=== PATIENT | male | born 1970 | race Caucasian/White ===

== ENCOUNTER 2020-02-12 04:36 | Observation (INO) ==
[2020-02-12 05:20] LABS: Basophils % 0.4 %; Eosinophils % 0.3 %; Hematocrit 43.6 % (37.5-50.1); Hemoglobin 13.6 g/dL (12.9-16.9); Immature Granulocytes % 0.9 % (0-4); Lymphocytes # 0.6 K/mcL (0.6-4.6); Lymphocytes % 7.4 %; Mean Corpuscular HGB Conc 31.2 g/dL (31.6-35.5); Mean Corpuscular Hemoglobin 26.7 pg (28.0-33.3); Mean Corpuscular Volume 85.5 fL (83.0-100.0); Mean Platelet Volume 11.2 fL (9.4-12.4); Monocytes # 0.7 K/mcL (0.0-1.3); Monocytes % 8.4 %; Neutrophils # 6.6 K/mcL (1.6-8.9); Platelet Count 269 K/mcL (140-400); Red Cell Distribution Width 14.6 % (11.5-14.5); Segmented Neutrophils % 82.6 %; White Blood Count 7.9 K/mcL (4.3-11.1)
[2020-02-12 05:42] LABS: BUN/Creatinine Ratio 15 (6-26); Blood Urea Nitrogen 14 mg/dL (6-20); Carbon Dioxide 28 mEq/L (23-29); Chloride 100 mEq/L (98-107); Glucose 182 mg/dL (70-105); Osmolality,Calculated 285 (280-300); Potassium 4.7 mEq/L (3.5-5.1); Sodium 135 mEq/L (136-145); Troponin I < 0.03 ng/mL (< 0.04); eGFR For African Americans > 60 (> 60); eGFR For Non-African Americans > 60 (> 60)
[2020-02-12] MEDS ORDERED: 0.9 % Sodium Chloride 1,000 ML IVC ONE (05:55)
[2020-02-12] MEDS ORDERED: Ondansetron 4 MG/2 ML VIAL IVP ONE (05:55)
[2020-02-12] MEDS ORDERED: Ketorolac 15 MG/ML VIAL IVP ONE (05:55)
[2020-02-12] MEDS ORDERED: Isovue-370 500 ML BOTTLE IVP ONE (06:03)
[2020-02-12] MEDS ORDERED: cefTRIAXone 1,000 MG in 0.9 % Sodium Chloride Mini Bag 100 ML IVPB ONE (06:56)
[2020-02-12] MEDS ORDERED: Azithromycin 500 MG in 0.9 % Sodium Chloride 250 ML IVPB ONE (08:25)
[2020-02-12] MEDS ORDERED: Ondansetron 4 MG/2 ML VIAL IVP PRN (08:51)
[2020-02-12] MEDS ORDERED: Naloxone 0.4 MG/ML INJ IVP PRN (08:51)
[2020-02-12] MEDS ORDERED: Ibuprofen 400 MG TABLET PO PRN (08:52)
[2020-02-12] MEDS ORDERED: *HR* Promethazine 25 MG/ML VIAL IVP PRN (09:19)
[2020-02-12] MEDS ORDERED: *HR* Dextrose 50 % in Water (Syg) 50 ML SYRINGE IVP PRN (09:29)
[2020-02-12] MEDS ORDERED: D5% in Water 1,000 ML IVC PRN (09:29)
[2020-02-12] MEDS ORDERED: Dextrose Gel 15 GM/37.5 ML TUBE PO PRN ×2 (09:29)
[2020-02-12 10:21] LABS: Alanine Aminotransferase 21 Units/L (7-52); Albumin 4.2 g/dL (3.5-5.7); Albumin/Globulin Ratio 1.3 (1.1-2.2); Alkaline Phosphatase 100 Units/L (34-104); Aspartate Amino Transferase 26 Units/L (13-39); Bilirubin,Direct 0.1 mg/dL (0.0-0.2); Bilirubin,Indirect 0.2 mg/dL (0.0-1.0); Bilirubin,Total 0.3 mg/dL (0.3-1.0); Globulin 3.3 g/dL (2.4-3.5); Total Protein 7.5 g/dL (6.4-8.9)
[2020-02-12 10:21] LABS: Prothrombin Time 11.9 Seconds (9.4-12.1)
[2020-02-12] MEDS: Acetaminophen 325 MG TABLET PO PRN ×2 (11:27→17:36)
[2020-02-12] MEDS: Insulin LISPRO 300 UNITS/3 ML VIAL SQ SCH ×3 (11:30→21:05)
[2020-02-12] MEDS ORDERED: QUEtiapine Fumarate 100 MG TABLET PO SCH (13:30)
[2020-02-12] MEDS ORDERED: levETIRAcetam 250 MG TABLET PO SCH (13:30)
[2020-02-12] MEDS ORDERED: CarBAMazepine XR (12 hr) 100 MG TAB PO SCH (13:30)
[2020-02-12] MEDS: levETIRAcetam 250 MG TABLET PO SCH (20:46)
[2020-02-12] MEDS: Pregabalin 50 MG CAPSULE PO SCH (20:47)
[2020-02-12] MEDS: QUEtiapine Fumarate 100 MG TABLET PO SCH (20:47)
[2020-02-12] MEDS: hydrOXYzine pamoate 25 MG CAPSULE PO SCH (20:47)
[2020-02-12] MEDS: carBAMazepine 200 MG TABLET PO SCH (20:48)
[2020-02-13] MEDS: *HR* Enoxaparin 40 MG/0.4 ML SYRINGE SQ SCH (05:58)
[2020-02-13] MEDS: Acetaminophen 325 MG TABLET PO PRN (05:58)
[2020-02-13 06:44] LABS: BUN/Creatinine Ratio 18 (6-26); Blood Urea Nitrogen 14 mg/dL (6-20); Calcium 6.7 mg/dL (8.6-10.3); Carbon Dioxide 23 mEq/L (23-29); Chloride 112 mEq/L (98-107); Glucose 80 mg/dL (70-105); Osmolality,Calculated 289 (280-300); Potassium 3.1 mEq/L (3.5-5.1); Sodium 140 mEq/L (136-145); eGFR For African Americans > 60 (> 60); eGFR For Non-African Americans > 60 (> 60)
[2020-02-13] MEDS: carBAMazepine 200 MG TABLET PO SCH ×2 (07:59→21:45)
[2020-02-13] MEDS: levETIRAcetam 250 MG TABLET PO SCH ×2 (08:00→21:40)
[2020-02-13] MEDS: Pregabalin 50 MG CAPSULE PO SCH ×3 (08:00→21:41)
[2020-02-13] MEDS: cefTRIAXone 1,000 MG in Water for inj. (sterile) 10 ML IVP SCH (08:00)
[2020-02-13] MEDS: Azithromycin 500 MG in 0.9 % Sodium Chloride 250 ML IVPB SCH (08:01)
[2020-02-13] MEDS: Insulin LISPRO 300 UNITS/3 ML VIAL SQ SCH ×5 (08:36→21:37)
[2020-02-13] MEDS ORDERED: CarBAMazepine XR (12 hr) 100 MG TAB PO SCH (09:00)
[2020-02-13] MEDS ORDERED: levETIRAcetam 250 MG TABLET PO SCH (09:00)
[2020-02-13] MEDS ORDERED: QUEtiapine Fumarate 100 MG TABLET PO SCH (09:00)
[2020-02-13] MEDS ORDERED: SUMAtriptan succinate 50 MG TABLET PO ONE (16:46)
[2020-02-13] MEDS: QUEtiapine Fumarate 100 MG TABLET PO SCH (21:43)
[2020-02-13] MEDS: hydrOXYzine pamoate 25 MG CAPSULE PO SCH (21:45)
[2020-02-14] MEDS: *HR* Enoxaparin 40 MG/0.4 ML SYRINGE SQ SCH (04:39)
[2020-02-14 05:11] LABS: Hemoglobin 13.2 g/dL (12.9-16.9); Mean Corpuscular HGB Conc 32.2 g/dL (31.6-35.5); Mean Corpuscular Hemoglobin 26.7 pg (28.0-33.3); Platelet Count 262 K/mcL (140-400); Red Blood Count 4.94 M/mcL (4.19-5.50); Red Cell Distribution Width 14.2 % (11.5-14.5); White Blood Count 8.3 K/mcL (4.3-11.1)
[2020-02-14 05:30] LABS: BUN/Creatinine Ratio 22 (6-26); Blood Urea Nitrogen 22 mg/dL (6-20); Calcium 9.3 mg/dL (8.6-10.3); Carbon Dioxide 27 mEq/L (23-29); Chloride 103 mEq/L (98-107); Glucose 92 mg/dL (70-105); Osmolality,Calculated 287 (280-300); Potassium 4.3 mEq/L (3.5-5.1); Sodium 137 mEq/L (136-145); eGFR For African Americans > 60 (> 60); eGFR For Non-African Americans > 60 (> 60)
[2020-02-14 09:05] VITALS: BP 127/78
[2020-02-14] MEDS: cefTRIAXone 1,000 MG in Water for inj. (sterile) 10 ML IVP SCH (09:06)
[2020-02-14] MEDS: Pregabalin 50 MG CAPSULE PO SCH (09:07)
[2020-02-14] MEDS: levETIRAcetam 250 MG TABLET PO SCH (09:07)
[2020-02-14] MEDS: Azithromycin 500 MG in 0.9 % Sodium Chloride 250 ML IVPB SCH (09:08)
[2020-02-14] MEDS: Insulin LISPRO 300 UNITS/3 ML VIAL SQ SCH (09:08)
[2020-02-14] MEDS: carBAMazepine 200 MG TABLET PO SCH (09:09)
== END 2020-02-14 11:58 | disposition home or self-care (01) ==
LOC: 3BNU 04:36 → EMEROOARM 04:36 → 2NENU 09:10
PROVIDERS: ADMIT Student in an Organized Health Care Education/Training Program; ATTEND Student in an Organized Health Care Education/Training Program